=== PATIENT | female | born 1965 | race Caucasian/White ===

== ENCOUNTER 2020-02-09 12:50 | Emergency (ER) | payer OTHER, SELFPAY ==
[~2020-02-09] VITALS: Ht 175.3 cm; Wt 124.9 kg
[2020-02-09 12:51] VITALS: BP 124/79
[2020-02-09] MEDS ORDERED: OMEP-218 (12:59)
[2020-02-09] MEDS ORDERED: CHLO125TA (12:59)
[2020-02-09] MEDS ORDERED: LISI40TA (12:59)
[2020-02-09] MEDS ORDERED: METF10004 (12:59)
[2020-02-09] MEDS ORDERED: MELO15TA28 (12:59)
[2020-02-09] MEDS ORDERED: ACETAMINOPHEN 325 MG TAB PO ONE (13:15)
--- NOTE | 2020-02-09 14:12 | REP ---
REASON: Trauma. COMPARISON: None. The patient states she has a previous history of clavicular fracture. There is an old healed clavicular fracture. 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 The glenohumeral relationship is within normal limits. There is no acute fracture, dislocation or subluxation. IMPRESSION: Chronic changes as described above. Electronically Signed by Naveen Wilson DO 02/09/2020 02:14 P
== END 2020-02-09 13:53 | disposition home or self-care (01) ==
LOC: M ED 12:50
DX: S40.011A Contusion of right shoulder, initial encounter (principal); M19.011 Primary osteoarthritis, right shoulder; W22.8XXA Striking against or struck by other objects, initial encounter; Y92.89 Other specified places as the place of occurrence of the external cause; Y93.01 Activity, walking, marching and hiking; Y99.0 Civilian activity done for income or pay; I10 Essential (primary) hypertension; K21.9 Gastro-esophageal reflux disease without esophagitis; F17.210 Nicotine dependence, cigarettes, uncomplicated; Z88.8 Allergy status to other drugs, medicaments and biological substances; Z88.5 Allergy status to narcotic agent; Z79.899 Other long term (current) drug therapy

== ENCOUNTER → 2020-02-22 | Outpatient (CLI) | payer BC ==
[~2020-02-22] MED LIST: CHLO125TA; LISI40TA; MELO15TA28; METF10004; OMEP-218
[2020-02-22 15:20] LABS: CALCIUM LEVEL 8.7 MG/DL (8.5-10.1); CREATININE FOR GFR 1.13 MG/DL (0.55-1.30); GLOMERULAR FILTRATION RATE 53.4 (>51); POTASSIUM SERUM 3.9 MEQ/L (3.5-5.1)
[2020-02-22 16:03] LABS: HEMOGLOBIN A1c 6.9 %
== END ==
LOC: M LAB 14:41
PROVIDERS: ATTEND Hospitalist
DX: R73.03 Prediabetes (principal)

== ENCOUNTER 2020-04-16 08:34 | Emergency (ER) | payer BC ==
[~2020-04-16] VITALS: Ht 177.8 cm; Wt 122.1 kg
[~2020-04-16 08:34] MED LIST changes: -METF10004; +METF10004 PO
[2020-04-16 09:23] LABS: BASO # 0.1 10^3/uL (0.0-0.2); BASO % 0.9 % (0.0-1.0); EOS # 0.5 10^3/uL (0.0-0.5); EOS % 5.8 % (0.0-3.0); HEMATOCRIT 41.6 % (36.0-47.0); HEMOGLOBIN 14.2 g/dl (12.0-15.5); MEAN CORPUSCULAR HEMOGLOBIN 31.3 pg (27.0-33.0); MEAN CORPUSCULAR HGB CONC 34.1 g/dl (32.0-36.5); MEAN CORPUSCULAR VOLUME 91.6 fl (80.0-96.0); MONO # 0.6 10^3/uL (0.0-0.8); MONO % 7.1 % (0.0-5.0); NEUTROPHILS # 4.6 10^3/uL (1.5-8.5); NEUTROPHILS % 59.8 % (36.0-66.0); PLATELET COUNT, AUTOMATED 306 10^3/uL (150-450); RED BLOOD COUNT 4.54 10^6/uL (4.00-5.40); WHITE BLOOD COUNT 7.7 10^3/uL (4.0-10.0)
[2020-04-16 09:28] LABS: INR 1.08; PROTHROMBIN TIME 13.7 SECONDS (11.8-14.0)
[2020-04-16 09:30] LABS: PARTIAL THROMBOPLASTIN TIME 40.5 SECONDS (25.0-38.4)
[2020-04-16] MEDS ORDERED: dexameTHASONE 20MG/5ML VIAL (J1100 PER 1MG) IV ONE (09:30)
[2020-04-16] MEDS: COMBIVENT RESPIMAT 100-20MCG INHALER 4GM INH SCH ×3 (09:43→10:10)
[2020-04-16 09:53] LABS: ALBUMIN 4.1 GM/DL (3.2-5.2); ALT/SGPT 83 U/L (12-78); BILIRUBIN,DIRECT 0.1 MG/DL (0.0-0.2); BILIRUBIN,TOTAL 0.5 MG/DL (0.2-1.0); BLOOD UREA NITROGEN 16 MG/DL (7-18); CALCIUM LEVEL 9.9 MG/DL (8.5-10.1); CARBON DIOXIDE LEVEL 23 MEQ/L (21-32); CHLORIDE LEVEL 102 MEQ/L (98-107); CK-MB VALUE MASS < 1.0 NG/ML (<3.6); CPK CREATINE PHOSPHOKINASE 52 U/L (26-192); CREATININE FOR GFR 1.31 MG/DL (0.55-1.30); FREE T4 1.42 NG/DL (0.76-1.46); GLUCOSE, FASTING 163 MG/DL (70-100); LIPASE 119 U/L (73-393); MB/CK RELATIVE INDEX 1.92 (< OR =4); POTASSIUM SERUM 3.8 MEQ/L (3.5-5.1); SODIUM LEVEL 139 MEQ/L (136-145); TOTAL PROTEIN 7.5 GM/DL (6.4-8.2); TROPONIN I < 0.02 NG/ML (< 0.10)
--- NOTE | 2020-04-16 10:28 | REP ---
CHEST, SINGLE VIEW: There is no evidence of acute infiltrate. No pleural effusion is seen. The heart is normal in size. The mediastinal silhouette is unremarkable. The visualized osseous structures are intact. IMPRESSION: No acute pulmonary disease. Electronically Signed by Anatoly Lui MD 04/16/2020 11:29 A
[2020-04-16] MEDS ORDERED: NS 500 ML IV ONE (10:30)
[2020-04-16] MEDS ORDERED: NS 1,000 ML IV ONE (11:30)
[2020-04-16] MEDS ORDERED: ISOVUE-370 76% 100ML VIAL As Ordered ONE (11:38)
--- NOTE | 2020-04-16 14:49 | REP ---
REASON: Chest pain and dyspnea. PRIORS: None. CONTRAST: 100 mL Isovue-370. There is excellent visualization of the pulmonary arterial vasculature. There are no focal filling defects that would be considered consistent with acute pulmonary emboli. There are no pleural or pericardial effusions. There is no mediastinal or hilar adenopathy. The imaged upper abdomen and imaged osseous structures are within normal limits. Evaluation of the lung calvillo shows bilateral subsegmental atelectatic changes. IMPRESSION: CT findings are within normal limits. Electronically Signed by Naveen Wilson DO 04/16/2020 02:53 P
[2020-04-16] MEDS ORDERED: AZIT-12 PO (15:16)
[2020-04-16] MEDS ORDERED: COMBAER6 INH (15:16)
[2020-04-16] MEDS ORDERED: PRED20TA PO (15:16)
[2020-04-16 15:43] VITALS: BP 115/83
--- NOTE | 2020-04-17 07:58 | ECGEPIP ---
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
--- NOTE | 2020-04-17 08:02 | ECGEPIP ---
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
== END 2020-04-16 15:53 | disposition home or self-care (01) ==
LOC: M ED 08:34
DX: J40 Bronchitis, not specified as acute or chronic (principal); I10 Essential (primary) hypertension; F17.200 Nicotine dependence, unspecified, uncomplicated; K21.9 Gastro-esophageal reflux disease without esophagitis; R00.0 Tachycardia, unspecified; Z79.84 Long term (current) use of oral hypoglycemic drugs; Z79.899 Other long term (current) drug therapy; Z88.6 Allergy status to analgesic agent; Z88.8 Allergy status to other drugs, medicaments and biological substances
CPT/HCPCS: 71045; 71275; 80048; 80076; 82550; 82553; 83690; 84439; 84443; 84484; 85025; 85610; 85730; 87486; 87581; 87633; 87798; 93005; 93041; 94640; 94664; 94760; 96361; 96374; 99285; J1100; Q9967

== ENCOUNTER 2021-01-21 15:21 | Emergency (ER) | payer BC ==
[~2021-01-21] VITALS: Ht 175.3 cm; Wt 127.3 kg
[~2021-01-21 15:21] MED LIST changes: +AZIT-12 PO; +COMBAER6 INH; -LISI40TA; +LISI40TA4; +PRED20TA PO
[2021-01-21] MEDS ORDERED: ONDANSETRON 4MG/2ML VIAL IV ONE (16:45)
[2021-01-21 17:30] LABS: BASO # 0.1 10^3/uL (0.0-0.2); BASO % 0.8 % (0.0-1.0); EOS # 0.7 10^3/uL (0.0-0.5); EOS % 6.8 % (0.0-3.0); HEMOGLOBIN 13.5 g/dl (12.0-15.5); LYMPH # 2.8 10^3/uL (1.5-5.0); LYMPH % 28.5 % (24.0-44.0); MEAN CORPUSCULAR HEMOGLOBIN 30.5 pg (27.0-33.0); MEAN CORPUSCULAR HGB CONC 32.9 g/dl (32.0-36.5); MEAN CORPUSCULAR VOLUME 92.6 fl (80.0-96.0); MONO # 0.8 10^3/uL (0.0-0.8); MONO % 8.1 % (2.0-8.0); NEUTROPHILS # 5.4 10^3/uL (1.5-8.5); NEUTROPHILS % 55.5 % (36.0-66.0); PLATELET COUNT, AUTOMATED 296 10^3/uL (150-450); RED BLOOD COUNT 4.43 10^6/uL (4.00-5.40); WHITE BLOOD COUNT 9.7 10^3/uL (4.0-10.0)
[2021-01-21] MEDS: MORPHINE 2 MG/ML 1ML VIAL (J2270) IV PRN ×2 (17:30→19:45)
[2021-01-21 17:39] LABS: INR 0.94; PROTHROMBIN TIME 12.8 SECONDS (12.5-14.3)
[2021-01-21 17:40] LABS: PARTIAL THROMBOPLASTIN TIME 37.4 SECONDS (24.2-38.5)
[2021-01-21 17:54] LABS: ALBUMIN 4.1 GM/DL (3.2-5.2); BILIRUBIN,TOTAL 0.3 MG/DL (0.2-1.0); CALCIUM LEVEL 9.3 MG/DL (8.5-10.1); CREATININE FOR GFR 1.45 MG/DL (0.55-1.30); GLOMERULAR FILTRATION RATE 39.9 (>51); TOTAL PROTEIN 7.4 GM/DL (6.4-8.2)
[2021-01-21] MEDS ORDERED: NICOTINE 21MG/24HR 1 EA TRANSDERMAL TD ONE (18:00)
[2021-01-21 21:01] VITALS: BP 140/65
--- NOTE | 2021-01-21 22:50 | REPVR ---
PROCEDURE INFORMATION: Exam: MR Lumbar Spine Without Contrast Exam date and time: 01/21/2021 7:56 PM Age: 55 years old Clinical indication: Low back pain; Patient HX: Back pain- new incontinence TECHNIQUE: Imaging protocol: Multiplanar magnetic resonance images of the lumbar spine without intravenous contrast. COMPARISON: No relevant prior studies available. FINDINGS: Vertebral body height and AP alignment is preserved. There is disc desiccation. Negative for discitis/osteomyelitis. There are hemangiomas involving L2 and L3. Conus medullaris terminates at T12-L1. No epidural fluid collection. L1-L2: Mild bilateral facet joint arthropathy without stenosis. L2-L3: Mild disc bulge with bilateral facet joint arthropathy. No significant central or foraminal stenosis. L3-L4: Minimal disc bulge with bilateral facet joint arthropathy. No significant central or foraminal stenosis. L4-L5: Mild disc bulge with bilateral facet joint arthropathy. No significant central or foraminal stenosis. L5-S1: Mild disc bulge with bilateral facet joint arthropathy. No significant central or foraminal stenosis. IMPRESSION: 1. No acute abnormality involving the lumbar spine. 2. Central canal is widely patent throughout. Electronically signed by: Charly Roman On 01/21/2021 22:50:15 PM
[2021-01-21] MEDS ORDERED: CYCL5TAB PO (23:07)
[2021-01-21] MEDS ORDERED: CYCLOBENZAPRINE 5MG TABLET PO ONE (23:10)
== END 2021-01-21 23:58 | disposition home or self-care (01) ==
LOC: M ED 15:21
DX: S39.012A Strain of muscle, fascia and tendon of lower back, initial encounter (principal); X58.XXXA Exposure to other specified factors, initial encounter; Y92.9 Unspecified place or not applicable; Y93.9 Activity, unspecified; Y99.9 Unspecified external cause status; K21.9 Gastro-esophageal reflux disease without esophagitis; F17.200 Nicotine dependence, unspecified, uncomplicated; Z88.6 Allergy status to analgesic agent; Z79.899 Other long term (current) drug therapy
CPT/HCPCS: 72148; 80053; 85025; 85610; 85730; 86850; 86900; 86901; 96374; 96375; 99284; J2270; J2405